=== PATIENT | female | born 1995 | race Caucasian/White ===

== ENCOUNTER 2019-01-08 10:02 | Inpatient (IN) | payer OTHER, SELFPAY ==
[2019-01-08] MEDS ORDERED: Ondansetron PF 4 MG/2 ML Vial IVP PRN ×2 (11:02→18:16)
[2019-01-08] MEDS ORDERED: Promethazine HCl 25 MG/ML VIAL IM PRN (11:02)
[2019-01-08] MEDS ORDERED: hydrALAZINE 20 MG/ML VIAL SLOW IVP PRN ×2 (11:02→18:16)
[2019-01-08] MEDS ORDERED: NS / Oxytocin 40 units/1000ml 1,000 ML IV PRN (11:02)
[2019-01-08] MEDS ORDERED: Butorphanol Tartrate 1 MG/ML VIAL SLOW IVP PRN (11:02)
[2019-01-08] MEDS ORDERED: Acetaminophen 500 MG TAB PO PRN (11:02)
[2019-01-08] MEDS ORDERED: Lidocaine 1% (PF) 30 ML VIAL SC PRN (11:02)
[2019-01-08] MEDS ORDERED: NS w/ Oxytocin 10 units 500 ML IV SCH ×2 (11:15)
[2019-01-08] MEDS ORDERED: Lactated Ringer's 1,000 ML IV SCH ×2 (11:15)
--- NOTE | 2019-01-08 11:19 | PDOC.FPROB ---
FMR OB H&P: HPI - History of Present Illness Chief Complaint: Contractions and vaginal spotting History of Present Illness: Ms. Lanny Conroy is a 23yo presents to the ED due to contractions, abdominal tenderness, and vaginal spotting. She states that she has been spotting since yesterday afternoon after she was checked at her appointment. She has been having contractions for the past several days , she will have 1 contraction every 10 minutes for a couple hours and then they stop. She was nauseous this morning and vomited twice. Primary Care Physician: Dr. Jillian Kaur, DO FMR OB H&P: Current - Care : 3 Para: 2 Gestational age: 39.5 Due date: 01/10/2019 Dating Criteria: 12.0 wk sonogram Total weight gain: 2lbs Course/Complications: None - OB Labs Blood type: O RH: positive Antibody Screen: negative HIV: negative RPR: negative HepBsAg: negative Rubella: immune Quad screen: unknown Urine drug screen: not done Gonorrhea: negative Chlamydia: negative Pap Smear: Negative 1 hour gtt: 115 GBS: negative - Anatomy Survey Anatomy survey: Hadlock 46.5%, posterior placenta, cephalic presentation No abnormalities FMR OB H&P: History - Past Medical History PMH: None - OB History OB History: x2 - 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: None - Surgical History Sx History: None - Social History Social History: Denies smoking tobacco, illicit drugs, and alcohol use - Family History Family History: None FMR OB H&P: Medications - Current Home Medications: Medication Instructions Recorded Confirmed Type Vit 33/Iron/Folic/Dha 1 tab PO DAILY 04/26/14 01/08/19 History [Select-OB + DHA Pack] Allergies/Adverse Reactions: Allergies Allergy/AdvReac Type Severity Reaction Status Date / Time No Known Allergies Allergy Verified 01/08/19 12:51 FMR OB H&P: ROS - Review of Systems General: denies: fever/chills, weight/appetite/sleep changes, night sweats, fatigue Eyes: denies: eye pain, vision changes ENT: denies: nasal congestion, rhinorrhea Cardiovascular: denies: chest pain, palpitation, edema, paroxysmal nocturnal dyspnea, orthopnea Respiratory: denies: cough, congestion, shortness of breath Gastrointestinal: reports: abdominal pain, cramping, nausea, vomiting. denies: indigestion, bloating, diarrhea, constipation Genitourinary (Female): reports: vaginal discharge, vaginal bleeding, contractions. denies: incontinence, dysuria, hematuria Musculoskeletal: denies: pain, stiffness, tenderness Neurologic: denies: numbness, syncope, seizures, weakness Integumentary: denies: itching, rash, lesions, discoloration Breast: denies: lumps, bumps, masses, skin changes, nipple changes, pain/ tenderness Endocrine: denies: cold intolerance, heat intolerance Psychological: denies: depression, anxiety FMR OB H&P: Vital Signs - Maternal Vital signs: BP: 107/53 O2 98% on RA RR 18, HR 90, Temp 99.2F - Heart Tones Baseline: 170 (170-190 ) Variability: moderate Acceleration: present Deceleration: absent Category: category 2 FMR OB H&P: Physical Exam - Physical Exam General: NAD, awake, alert and oriented HEENT: normocephalic and atraumatic, PERRLA, EOMI, MMM, no scleral icterus, grossly normal vision, grossly normal hearing Neck: supple, FROM Chest: non-tender to palpation, no lesions Breast: symmetric, non-tender, no skin changes, no erythema Heart: RRR, normal S1/S2, no murmurs/rubs/gallops, pulses present, no edema General: CTAB, no respiratory distress, good air movement, no rales/rhonchi, no wheezing Abdomen: soft, bowel sound present (*tender to palpation, diffusely. Specifically at the fundus.) Musculoskeletal: normal gait and station, pulses present, FROM in all four extremities Neurological: cranial nerves II through XII intact, no focal deficit Skin: no rash, good tugor, capillary refill <2 seconds Lymphatic: no unusual bruising or bleeding, no purpura Psychiatric: intact recent and remote memory, good judgement and insight, normal mood and affect - Pelvic Exam Vulva: normal hair distribution Deviation from normal: There a few small clots noted in the posterior fernix SVE: 11:47 6/80/-2 Presentation: Vertex FMR OB H&P: Results - Labs Lab results: Laboratory Tests 01/08/19 11:11 WBC 9.1 Hgb 11.6 L Hct 34.9 L Plt Count 186 Neutrophils % 82.2 H FMR OB H&P: A/P - Problem List (1) Term Current Visit: No Status: Acute Code(s): Z34.90 - ENCNTR FOR SUPRVSN OF NORMAL , UNSP, UNSP TRIMESTER Disposition: Inpatient, labor and delivery 23yo at 39.5 by 12wk sonogram. (EDC 01/10/2019) She presents with contractions, tenderness, and spotting. 1. Term * Start pitocin for augmentation of labor. * SVE was 6/-2 @ 11:47 * Category 2 strip due to FHT 170-190s on presentation. with moderate variability, + accells. Once in L&D FHR reduced to 140s. * Desires epidural, anesthesia consulted. 2. Concern for chorioamnionitis vs abruption * Low suspicion for either of these, she states on reevaluation that the tenderness has been present for a couple days. However, we will continue the work up. * Abnormal TTP across the fundus * tachycardia which has improved * CBC, CMP, Gonorrhea, Chlamydia, VP3 ordered. Discussion: Date/Time: 01/08/19 1113 This H&P was discussed with Dr. Phillips and Terrence, PGY-1. I was reviewed the above H&P and made any edits that were needed. Pt comes in with contractions and spotting. She has some moderate tenderness to palpation. We were concerned initially for abruption vs chorio due to tenderness and FHR in the 170's-190's. Once we got patient settled, FHR came down to 140s. Baby has good variability and accels. Mom's vitals have been stable. No sign of fever. We did a speculum exam and did note some small blood clots in the Posterior cul de sac. No sign of purulent discharge. Mom did have her membranes swept at clinic visit yesterday. At this time we will admit patient for labor. We will augment with pitocin at this time. We ordered CBC, CMP, GC/Chlamydia and VP3 swabs. We ordered a urine. We will await results. At this time low suspicion of chorio and abpruption. Addendum - Attending - Attending Attestation Date/Time: 01/08/19 3573 I personally evaluated the patient and discussed the management with Dr. Ocampo at time of admission. I agree with the History, Examination, Assessment and Plan documented above with any addition or exceptions noted below. tachycardia resolved promptly. Uterine palpation did not reveal tense or tender uterus except for some mild tenderness at fundus. Pt does not meet criteri for either IAI or abruption. Has progressed into active labor. COtnineu care.
[2019-01-08 11:25] LABS: #Lymphocytes 1.2 thou/uL (1.20-3.40); #Monocytes 0.5 thou/uL (0.11-0.59); #Neutrophils 7.5 thou/uL (1.40-6.50); %Basophils 0.1 % (0.0-1.0); %Eosinophils 0.2 % (0.0-10.0); %Lymphocytes 12.6 % (21.0-51.0); %Neutrophils 82.2 % (42.0-75.0); Hemoglobin 11.6 g/dL (12.0-16.0); Mean Corpuscular HGB CONC 33.1 g/dL (32.0-36.0); Mean Corpuscular Hemoglobin 31.4 pg (27.0-31.0); Mean Corpuscular Volume 94.8 fL (78.0-98.0); Mean Platelet Volume 8.9 fL (7.4-10.4); Platelet Count 186 thou/uL (130-400); RBC Distribution Width 12.2 % (11.5-14.5); Red Blood Cell (RBC) Count 3.68 mill/uL (4.20-5.40); White Blood Cell (WBC) Count 9.1 thou/uL (4.8-10.8)
[2019-01-08 12:06] LABS: Syphilis Antibody Nonreactive (Nonreactive); Syphilis Antibody Index 0.03 S/CO (<1.00 Non-Reactive)
[2019-01-08 12:07] LABS: HBSAg Index 0.29 S/CO (0-0.99); Hep B Surf Ag Non-Reactive S/CO (NonReactive)
[2019-01-08 12:37] LABS: ALT (SGPT) 11 U/L (8-55); AST (SGOT) 15 U/L (5-34); Albumin 3.7 g/dL (3.5-5.0); Alkaline Phosphatase 200 U/L (40-150); Anion Gap 17 mmol/L (10-20); BUN (Urea Nitrogen) 8 mg/dL (7.0-18.7); Bilirubin, Total 0.8 mg/dL (0.2-1.2); Calc. Creatinine Clearance 0 mL/min (70-130); Calcium 9.2 mg/dL (7.8-10.44); Carbon Dioxide 18 mmol/L (22-29); Chloride 105 mmol/L (98-107); Estimated GFR-MDRD Greater than 90; Globulin 2.7 g/dL (2.4-3.5); Glucose 77 mg/dL (70-105); Potassium 3.8 mmol/L (3.5-5.1); Protein, Total 6.4 g/dL (6.0-8.3); Sodium 136 mmol/L (136-145)
[2019-01-08 12:56] VITALS: BMI 29.2
--- NOTE | 2019-01-08 13:41 | PDOC.LDPN ---
Labor & Delivery Progress Note - Subjective Subjective: comfortable - Objective Vital signs reviewed and normal: yes General: NAD, resting, breathing through contractions Uterine fundus: tender to palpation (mildly tender in fundal area) SVE: by Dr. Ocampo and Dinah PADILLA Dilation: 8 Effacement: 90% Station: -1 FHT: category 1 (FHR 140s), variability present (moderate) War contractions every: 2-3 min, intermittent Plan: continue plan of care -: Membranes still intact. Labor continues to progress. Will recheck in 2 hours. Continue routine care. Patient continues to refuse epidural at this time.
[2019-01-08] MEDS ORDERED: HYDROcodone/Acetaminophen 5/325 mg Tablet PO SCH (16:00)
--- NOTE | 2019-01-08 16:16 | PDOC.OPDEL ---
OB Operative/Delivery Note Delivery Dr/Surgeon: Nicki Ocampo Neal - Additional Findings/Plan Placenta delivered: spontaneous Repaired Obstetrical Laceration: none Estimated blood loss: 50 Compilations/Other Findings: Delivering Physician: Nicki Ocampo Attending: Evens Procedure: Spontaneous Vaginal Delivery Anesthesia: none EBL: 50 ml Pre-op Diagnosis: 1. Spontaneous labor 2. Term intrauterine Post-op Diagnosis: 1. Term intrauterine , delivered 2. same as above Indications: A 23 y/o female G3 now P3003 presents in active labor Delivery Note: This is 23 yo F G3 now P3003 @ 39.5 wks who delivered a viable F at 1529 on 01/08/19. Following an uneventful intrapartum course, a vigorous female was delivered over an intact perineum in the LOP position. Anterior Shoulder and then remainder of the body delivered. No nuchal cord. The head was held down and mouth and nares were bulb suctioned. Cord clamped after delayed cord clamping of 2 min and cut and cord blood collected. Placenta delivered spontaneously intact with a 3 vessel cord noted. Fundal massage was performed and the fundus was firm. The cervix and vagina were inspected and found to be free of lacerations. went to nursery in good condition for routine care. Apgars were 8/9 at 1 & 5 minutes, respectively. Patient tolerated delivery well and went to after routine recovery/ care. Post delivery plan: routine recovery
[2019-01-08] MEDS ORDERED: Preparation H Ointment 28 GM TUBE PR PRN (18:16)
[2019-01-08] MEDS ORDERED: Benzocaine-Menthol 82.5 ML CAN TOP PRN (18:16)
[2019-01-08] MEDS ORDERED: Milk Of Magnesia 30 ML UDCUP PO PRN (18:16)
[2019-01-08] MEDS ORDERED: Bisacodyl 10 MG SUPP PR PRN (18:16)
[2019-01-08] MEDS ORDERED: diphenhydrAMINE 25 MG CAP PO PRN (18:16)
[2019-01-08] MEDS ORDERED: NS / Oxytocin 40 units/1000ml 1,000 ML IV SCH (18:16)
[2019-01-08] MEDS ORDERED: Lanolin Ointment 7 GM TUBE TOP PRN (18:16)
[2019-01-08] MEDS: Ibuprofen 800 MG TAB PO SCH (20:52)
[2019-01-08] MEDS: Docusate Calcium (SURFAK) 240 MG CAP PO SCH (20:52)
[2019-01-09] MEDS: Ibuprofen 800 MG TAB PO SCH ×2 (05:53→13:58)
--- NOTE | 2019-01-09 08:14 | PDOC.PP ---
Post Progress Note Post Day #: 1 Subjective: Patient doing well. No significant overnight events. Patient reports that her lower back pain is improving. She has only gotten her scheduled ibuprofen. Patient ambulating without difficulty. PO intake tolerated: yes Flatus: yes Ambulation: yes Vital Signs (12 hours) Temp Pulse Resp BP Pulse Ox 01/09/19 08:05 98.3 F 57 L 20 105/60 100 01/09/19 03:27 98.0 F 69 16 96/56 L 99 01/08/19 23:40 98.1 F 61 16 95/54 L 98 01/08/19 20:30 98.1 F 65 18 98/55 L 98 Weight Weight 72.575 kg - Physical Examination General: NAD Cardiovascular: RRR Respiratory: non-labored breathing Abdominal: + bowel sounds, lochia (minimal), no distention, appropriately TTP Fundus firm & at: above umbilicus Neurological: no gross focal deficits Psychiatric: A&Ox3, normal affect Result Diagrams: 01/08/19 11:11 01/08/19 11:11 Additional Labs: Post Labs Blood Type O POSITIVE 01/08/19 11:11 Hep Bs Antigen Non-Reactive S/CO (NonReactive) 01/08/19 11:11 (1) Normal Spontaneous Vaginal Delivery Code(s): O80 - ENCOUNTER FOR FULL-TERM UNCOMPLICATED DELIVERY Status: Acute - Assessment/Plan 23 year old G3 now P3003 delivered TAGA F infant at 39.5 wks by LMP/12 wk sono via on 01/08 at 16:29. Apgars 8/9. 1. Routine PP care - No complications - Lochia minimal - Rubella immune, Rh positive - Encourage ambulation 2. GERD - Continue home medications as needed 3. Bacterial vaginosis - Noted on admission - Will treat with PO flagyl x7 days Dispo: Plan for possible d/c home this evening pending infant bilirubin. Addendum - Attending - Attending Attestation Date/Time: 01/09/19 7667 I personally evaluated the patient and discussed the management with Dr. Caceres. I agree with the History, Examination, Assessment and Plan documented above with any addition or exceptions noted below.
[2019-01-09] MEDS ORDERED: metroNIDAZOLE 500 MG TAB PO SCH (09:00)
[2019-01-09] MEDS ORDERED: Prenatal Vitamin 1 TAB PO SCH (09:00)
[2019-01-09] MEDS ORDERED: Adacel (T-DAP) 0.5 ML SYRINGE IM ONE (09:00)
[2019-01-09] MEDS: Docusate Calcium (SURFAK) 240 MG CAP PO SCH (09:20)
[2019-01-09] MEDS: Ferrous Sulfate 325 MG TAB PO SCH ×2 (09:30→17:52)
[2019-01-09 12:18] VITALS: BP 113/72; TEMP 98.4
== END 2019-01-09 18:40 | disposition home or self-care (01) | DRG 805 ==
LOC: L&D/OP 10:02 → L&D 13:03 → 3SW 18:36
PROVIDERS: ADMIT Family Medicine; ATTEND Obstetrics & Gynecology
PROC: 10E0XZZ Delivery of Products of Conception, External Approach (ICD-10-PCS; principal; 2019-01-08)
DX: O76 Abnormality in fetal heart rate and rhythm complicating labor and delivery (principal); O75.3 Other infection during labor; Z37.0 Single live birth; O99.62 Diseases of the digestive system complicating childbirth; Z3A.39 39 weeks gestation of pregnancy; K21.9 Gastro-esophageal reflux disease without esophagitis
CPT/HCPCS: 36415; 80053; 86780; 86850; 86900; 86901; 87340; 87480; 87510; 87660; 99285; J0595

== ENCOUNTER 2024-04-28 15:16 | Emergency (ER) | payer MEDICAID, SELFPAY ==
[~2024-04-28 15:16] MED LIST: Iopamidol-370 76% 500 ML MDV (1 ML CHARGE) ONE
[2024-04-28 15:59] LABS: #Basophils Less than 0.03 10x3/uL (0.0-0.2); %Basophils 0.3 % (0.0-1.0); %Eosinophils 0.5 % (0.0-10.0); %Lymphocytes 32.4 % (21.0-51.0); %Monocytes 4.7 % (0.0-10.0); %Neutrophils 61.9 % (42.0-75.0); Hematocrit 45.4 % (36.0-47.0); Hemoglobin 15.3 g/dL (12.0-16.0); Mean Corpuscular HGB CONC 33.7 g/dL (32.0-36.0); Mean Corpuscular Hemoglobin 30.7 pg (27.0-31.0); Mean Platelet Volume 9.6 fL (7.4-10.4); Platelet Count 317 10x3/uL (130-400); RBC Distribution Width 12.7 % (11.5-14.5); Red Blood Cell (RBC) Count 4.99 mill/uL (4.20-5.40)
[2024-04-28 16:12] LABS: BHCG - Serum Negative (NEGATIVE); Pregs Control Background? CLEAR/WHITE (CLR/WHITE); Pregs Control Bar Appear? YES (CONTROL BAR)
[2024-04-28 16:20] LABS: ALT (SGPT) 12 U/L (8-55); AST (SGOT) 18 U/L (5-34); Albumin 4.7 g/dL (3.5-5.0); Alkaline Phosphatase 71 U/L (40-110); Anion Gap 15 mmol/L (10-20); BUN (Urea Nitrogen) 16 mg/dL (7.0-18.7); Bilirubin, Total 0.5 mg/dL (0.2-1.2); Calc. Creatinine Clearance 0 mL/min (70-130); Carbon Dioxide 24 mmol/L (22-29); Chloride 105 mmol/L (98-107); Estimated GFR 113; Globulin 3.8 g/dL (2.4-3.5); Glucose 81 mg/dL (70-105); Lipase 30 U/L (8-78); Potassium 3.5 mmol/L (3.5-5.1); Protein, Total 8.5 g/dL (6.0-8.3); Sodium 140 mmol/L (136-145)
[2024-04-28 18:01] LABS: Bacteria/HPF None Seen HPF (None Seen); Bilirubin Negative (Negative); Blood, Urine 3+ (Negative); CAUTI Indications for Culture Acute Hematuria; Clarity Clear (Clear); Glucose, Urine (Dipstick) Normal (Negative); Ketone, Urine Negative (Negative); Leukocyte Negative Leu/uL (Negative); Nitrite Negative (Negative); Protein, Urine (Dipstick) Negative (Neg-Trace); RBC/HPF Greater than 50 HPF (0-3); Squamous Epithelial 0-3 HPF (0-3); Urobilinogen Normal mg/dL (Less than 2); WBC/HPF 0-3 HPF (0-3); pH, Urine 6.5 (5.0-9.0)
[2024-04-28 18:02] LABS: Specific Gravity, Urine 1.052 (1.002-1.036); Urine Culture Reflex No No
[2024-04-28] MEDS ORDERED: Ketorolac Tromethamine 30 MG (1 mL) VIAL ONE (18:13)
== END 2024-04-28 18:52 | disposition home or self-care (01) ==
LOC: ERS 15:16
DX: N83.202 Unspecified ovarian cyst, left side (principal); R10.31 Right lower quadrant pain; Z97.5 Presence of (intrauterine) contraceptive device
CPT/HCPCS: 36415; 74177; 80053; 81001; 83690; 84703; 85025; 96374; J1885; Q9967